=== PATIENT | female | born 1960 | race African-American/Black ===

== ENCOUNTER 2020-01-22 18:25 | Emergency (ER) | payer OTHER ==
[~2020-01-22] VITALS: Ht 162.6 cm; Wt 120.5 kg
[2020-01-22 18:52] VITALS: BP 150/93; TEMP 97.7
[2020-01-22 19:07] LABS: COLLECTION METHOD CLEAN CATCH
[2020-01-22 19:14] LABS: PH 8 (5-8); SQUAMOUS EPITHELIAL None Seen /hpf; URINE APPEARANCE Clear; URINE BACTERIA None Seen /hpf; URINE BILIRUBIN Negative (NEGATIVE); URINE BLOOD Negative (NEGATIVE); URINE COLOR Straw; URINE GLUCOSE Negative (NEGATIVE); URINE KETONE Negative (NEGATIVE); URINE LEUKOCYTE ESTERASE Negative (NEGATIVE); URINE NITRATE Negative (NEGATIVE); URINE PROTEIN(semi-quant) Negative (NEGATIVE); URINE RBC 0-2 /hpf; URINE UROBILINOGEN Negative (NEGATIVE)
[2020-01-22 20:07] LABS: BASO % 0.3 % (0.0-2.0); EOS % 0.1 % (0-4.0); GRAN # 8.5 (1.4-6.5); GRAN % 86.4 % (42.2-75.2); HEMATOCRIT 37.7 % (37.0-47.0); HEMOGLOBIN 12.6 g/dl (12.5-16.0); LYMPH % 9.8 % (20.0-51.0); MEAN CELL VOLUME 79 fl (80.0-100.0); MEAN CORPUSCULAR HEMOGLOBIN 27 pg (27.0-31.0); MEAN CORPUSCULAR HGB CONC 33 g/dl (33.0-37.0); MEAN PLATELET VOLUME 9.5 fl (7.4-10.4); MONO # 0.3 (0.1-0.6); MONO % 3.1 % (1.7-9.3); PLATELET COUNT 273 K/mm3 (130-400); RED BLOOD COUNT 4.76 M/mm3 (4.10-5.30); REDCELL DISTRIBUTION WIDTH-CV 15.5 % (11.5-14.5)
[2020-01-22 20:15] LABS: INR 1.7 (0.8-3.0); PROTHROMBIN TIME 18.6 SECONDS (9.7-12.8)
[2020-01-22 20:24] LABS: ALBUMIN 4.4 gm/dL (3.5-5.0); BILIRUBIN,TOTAL 0.5 mg/dL (0.0-1.0); C-REACTIVE PROTEIN 1.8 mg/dL (0.0-0.9); POTASSIUM 3.8 mmol/L (3.4-5.0); TOTAL PROTEIN 8.2 gm/dL (6.4-8.2)
[2020-01-22] MEDS ORDERED: AMOXICILLIN 8751 TAB PO (22:24)
[2020-01-22] MEDS ORDERED: NORCO 325 MG-51 TAB PO (22:24)
[2020-01-22 22:42] VITALS: PULSE 88
== END 2020-01-22 22:45 | disposition home or self-care (01) ==
LOC: COL.ER 18:25
PROVIDERS: Emergency Medicine
DX: K57.32 Diverticulitis of large intestine without perforation or abscess without bleeding (principal); K21.9 Gastro-esophageal reflux disease without esophagitis; I10 Essential (primary) hypertension; Z79.01 Long term (current) use of anticoagulants; Z86.718 Personal history of other venous thrombosis and embolism; Z90.49 Acquired absence of other specified parts of digestive tract; Z90.710 Acquired absence of both cervix and uterus
CPT/HCPCS: J2270; J2405; J7030; Q9967

== ENCOUNTER → 2020-06-28 | Outpatient (CLI) | payer OTHER ==
[~2020-06-28] MED LIST: AMOXICILLIN 8751 TAB PO; NORCO 325 MG-51 TAB PO
== END ==
LOC: COL.RAD 07:15
DX: M47.26 Other spondylosis with radiculopathy, lumbar region (principal); M51.16 Intervertebral disc disorders with radiculopathy, lumbar region; M48.061 Spinal stenosis, lumbar region without neurogenic claudication; M51.27 Other intervertebral disc displacement, lumbosacral region